=== PATIENT | male | born 1950 | race Caucasian/White ===

== ENCOUNTER 2016-07-05 16:20 | Emergency (ER) | payer MEDICARE ==
[2016-07-05 16:29] VITALS: RESP 20
[2016-07-05] MEDS ORDERED: HYDROcodone/APAP 5-325MG 1 EACH TAB PO STA (17:24)
--- NOTE | 2016-07-05 17:27 | ED ---
Upper Extremity HPI - General Chief Complaint: Extremity Injury, Upper Stated Complaint: Fall Time Seen by Provider: 07/05/16 17:15 Source: patient, RN notes reviewed Mode of arrival: ambulatory Limitations: no limitations - History of Present Illness Initial Comments: Patient is a 66-year-old male presents to the emergency room for evaluation of left arm pain. Patient states he was leaf blowing earlier this afternoon and slid down a hill landing on his left upper arm. Patient states she's having pain in his shoulder area. Patient states pain is worse when he tries to move his shoulder. Patient denies numbness or tingling in his fingers. Patient denies any other injuries during incident. Patient denies head trauma, neck pain, loss consciousness, nausea, vomiting. Patient denies taking any blood thinners. Patient states he's been taking ibuprofen with no relief of symptoms. Patient states he wants make sure he did not break his arm. Place: home, outdoors - Related Data Home Medications Medication Instructions Recorded Confirmed Fexofenadine/Pseudoephedrine 1 each PO BID 06/20/15 07/05/16 [Shameka-D 12 Hour Tablet] Ranitidine HCl [Zantac] 75 mg PO BID 06/20/15 07/05/16 Allergies Allergy/AdvReac Type Severity Reaction Status Date / Time No Known Allergies Allergy Verified 07/05/16 16:29 Review of Systems ROS Statement: Those systems with pertinent positive or pertinent negative responses have been documented in the HPI. ROS Other: All systems not noted in ROS Statement are negative. Past Medical History Past Medical History: Asthma Additional Past Medical History / Comment(s): chronic rash History of Any Multi-Drug Resistant Organisms: None Reported Past Surgical History: Orthopedic Surgery Additional Past Surgical History / Comment(s): right femur Past Psychological History: No Psychological Hx Reported Smoking Status: Never smoker Past Alcohol Use History: Occasional Past Drug Use History: None Reported General Exam - General Exam Comments Initial Comments: Sitting in exam room, no acute distress. Limitations: no limitations General appearance: alert, in no apparent distress Head exam: Present: atraumatic, normocephalic, normal inspection Eye exam: Present: normal appearance ENT exam: Present: normal exam Neck exam: Present: normal inspection Respiratory exam: Present: normal lung sounds bilaterally. Absent: respiratory distress Cardiovascular Exam: Present: regular rate, normal rhythm, normal heart sounds Left Shoulder Exam: Present: normal inspection. Absent: full ROM, tenderness, tenderness over AC joint Upper Arm exam: Present: tenderness (Tenderness on palpating over mid and proximal humerus). Absent: full ROM Elbow exam: Present: normal inspection, full ROM. Absent: tenderness Forearm Wrist exam: Present: normal inspection, full ROM. Absent: tenderness Hand Wrist exam: Present: normal inspection, full ROM. Absent: tenderness Neuro motor exam: Present: wrist extension intact, thumb opposition intact, thumb IP flexion intact, thumb adduction intact, fingers 2-5 abduction intact Vascular: Present: normal capillary refill (Capillary refill less than 2 seconds ), radial pulse (2+), ulnar pulse (2+) Back exam: Present: normal inspection Neurological exam: Present: alert, oriented X3, CN II-XII intact, normal gait Psychiatric exam: Present: normal affect, normal mood Skin exam: Present: warm, dry, intact, normal color. Absent: rash Course Vital Signs 07/05/16 16:26 Temperature 97.7 F Pulse Rate 73 Respiratory 20 Rate Blood Pressure 144/95 O2 Sat by Pulse 96 Oximetry Medical Decision Making - Medical Decision Making Patient is a 66-year-old male presents to the emergency room for evaluation of fall injury. Patient complaining of left upper arm pain. X-rays negative for any acute fractures or dislocations. Patient advised to follow-up with primary care provider if symptoms are not improving in 7-10 days. Advised patient take Tylenol or Motrin for pain. Patient states he understands everything that was discussed with him. Return parameters discussed. Case discussed with Dr. Gil. - Radiology Data Radiology results: report reviewed, image reviewed Disposition Clinical Impression: Fall, Contusion of left arm Disposition: HOME SELF-CARE Condition: Good Instructions: Contusion in Adults (ED) Additional Instructions: Ice on and off for 10-15 minutes for the next 24-48 hours. Please follow up with primary care provider if symptoms are not improving in 7-10 days. Take Tylenol or Motrin as needed for pain.. If new symptoms develop or symptoms worsen, please return to the ER. Referrals: Pam Hernandez MD [Primary Care Provider] - 1-2 days Time of Disposition: 17:59
--- NOTE | 2016-07-05 17:44 | XR ---
EXAMINATION TYPE: XR shoulder complete LT, XR humerus LT DATE OF EXAM: 07/05/2016 5:39 PM CLINICAL HISTORY: pain COMPARISON: NONE TECHNIQUE: Three views of the left shoulder are obtained. FINDINGS: There is no acute fracture/dislocation evident. The acromioclavicular and glenohumeral carol int spaces appear mildly to moderately narrowed. Cystic degenerative change humeral head.. The visua lized ribs are intact and unremarkable. IMPRESSION: 1. There is no acute fracture or dislocation. ICD 10 NO FRACTURE, INITIAL EVALUATION EXAMINATION TYPE: XR shoulder complete LT, XR humerus LT DATE OF EXAM: 07/05/2016 5:39 PM CLINICAL HISTORY: pain TECHNIQUE: Frontal and lateral images of the left humerus are obtained. COMPARISON: None. FINDINGS: There is no acute fracture/dislocation evident. The joint spaces appear within normal limi ts. The overlying soft tissue appears unremarkable. IMPRESSION: There is no acute fracture or dislocation. ICD 10 NO FRACTURE, INITIAL EVALUATION
[2016-07-05 18:15] VITALS: BP 136/80; PULSE 82; TEMP 97.5
== END 2016-07-05 18:15 | disposition home or self-care (01) ==
LOC: EC 16:20
DX: S40.022A Contusion of left upper arm, initial encounter (principal); Z79.899 Other long term (current) drug therapy; W01.0XXA Fall on same level from slipping, tripping and stumbling without subsequent striking against object, initial encounter; Y93.89 Activity, other specified; Y92.009 Unspecified place in unspecified non-institutional (private) residence as the place of occurrence of the external cause
CPT/HCPCS: 99283

== ENCOUNTER → 2019-03-29 | Outpatient (CLI) | payer OTHER ==
--- NOTE | 2019-03-29 11:39 | MR ---
EXAMINATION TYPE: MR sacroiliac joints wo/w con DATE OF EXAM: 03/29/2019 COMPARISON: NONE HISTORY: 69-year-old male M14.88 low back pain, spondyloarthropathy Technique: Multiplanar, multisequence images of the SI joints were obtained before and after administ ration of 12 mL intravenous Gadavist gadolinium contrast. FINDINGS: Heterogeneous marrow compatible with prominent red marrow reconversion which can be seen in the setti ng of anemia, obesity, smoking, and chronic disease. Degenerative changes within the visualized lower lumbar spine. Moderate degenerative disc disease L4- L5 and L5-S1 with disc height loss, disc desiccation, disc bulging. Corresponding endplate irregulari ty at L4-L5. Facet arthropathy lower lumbar spine. Along with ligamentum flavum thickening and disc bulge, there m ay be a moderate spinal canal stenosis L4-L5 with moderate bilateral foraminal stenoses. There is degenerative spurring within the bilateral SI joints, left greater than right no subarticula r edema or erosions are identified. The sacrum remains intact. No abnormal enhancement is identified. IMPRESSION: 1. 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 No subarticular edema or erosions to suggest an i nflammatory sacroiliitis. 2. Moderate degenerative disc disease and hypertrophic facet arthropathy visualized lower lumbar spin e. Along with ligamentum flavum thickening, there may be a moderate spinal canal stenosis at L4-L5 wi th moderate bilateral neuroforaminal stenosis.
== END | disposition home or self-care (01) ==
LOC: RADMRIMAIN 08:06
PROVIDERS: ATTEND Internal Medicine Rheumatology
DX: M16.0 Bilateral primary osteoarthritis of hip (principal); M47.898 Other spondylosis, sacral and sacrococcygeal region
CPT/HCPCS: 72197; A9585

== ENCOUNTER → 2019-04-29 | Outpatient (CLI) | payer MEDICARE ==
--- NOTE | 2019-04-29 12:11 | XR ---
EXAMINATION TYPE: XR chest 2V DATE OF EXAM: 04/29/2019 COMPARISON: 06/20/2015 HISTORY: 69-year-old male preoperative evaluation TECHNIQUE: Frontal and lateral views FINDINGS: Heart upper limits of normal in size. Aorta within normal limits. Mild interstitial prominence is unc hanged. No consolidation or pleural effusion. [facility] within the mid to lower thoracic spine. IMPRESSION: Chronic changes without acute cardiopulmonary process.
== END | disposition home or self-care (01) ==
LOC: RADXRMAIN 10:38
PROVIDERS: ATTEND Family Medicine
DX: Z01.818 Encounter for other preprocedural examination (principal)
CPT/HCPCS: 71046

== ENCOUNTER 2021-10-02 00:04 | Emergency (ER) | payer MEDICARE ==
[2021-10-02] MEDS ORDERED: IPRATROPIUM-ALBUTEROL 3 ML NEB INHALATION STA (00:24)
[2021-10-02] MEDS ORDERED: BENZONATATE 100 MG CAP PO STA (00:32)
[2021-10-02] MEDS ORDERED: DEXAMETHASONE SOD PHOSPHATE 10 MG/ML 1 ML VIAL IM STA (00:32)
--- NOTE | 2021-10-02 00:34 | ED ---
SOB HPI - General Chief Complaint: Shortness of Breath Stated Complaint: MARCIN Time Seen by Provider: 10/02/21 00:18 Source: patient, RN notes reviewed, old records reviewed Mode of arrival: ambulatory Limitations: no limitations - History of Present Illness Initial Comments: This is a 71-year-old male to the emergency department for evaluation. Patient presents today for evaluation regards to cough and shortness of breath and wheezing. Patient has history of asthma recently started on lisinopril as well as problems or with his breathing. Symptoms of been episodic. With worsening cough. Patient was at a wedding today and had a significant coughing attack prompting him to come the emergency department MD Complaint: shortness of breath, cough -: hour(s), days(s) Severity: mild Severity scale (1-10): 2 Quality: aching Consistency: intermittent Improves With: bronchodilators Worsens With: exertion Known History Of: COPD Context: recent URI, recent illness Associated Symptoms: cough Treatments Prior to Arrival: none - Related Data Home Medications Medication Instructions Recorded Confirmed Fexofenadine/Pseudoephedrine 1 each PO BID 06/20/15 07/05/16 [Shameka-D 12 Hour Tablet] raNITIdine HCL [Zantac] 75 mg PO BID 06/20/15 07/05/16 Previous Rx's Medication Instructions Recorded Benzonatate [Tessalon Perles] 100 mg PO TID PRN #15 capsule 10/02/21 predniSONE 50 mg PO DAILY #5 tab 10/02/21 Allergies Allergy/AdvReac Type Severity Reaction Status Date / Time No Known Allergies Allergy Verified 07/05/16 16:29 Review of Systems ROS Statement: Those systems with pertinent positive or pertinent negative responses have been documented in the HPI. ROS Other: All systems not noted in ROS Statement are negative. Past Medical History Past Medical History: Asthma, Hypertension Additional Past Medical History / Comment(s): chronic rash History of Any Multi-Drug Resistant Organisms: None Reported Past Surgical History: Orthopedic Surgery Additional Past Surgical History / Comment(s): right femur Past Psychological History: No Psychological Hx Reported Smoking Status: Never smoker Past Alcohol Use History: Occasional Past Drug Use History: None Reported General Exam Limitations: no limitations General appearance: alert, in no apparent distress Head exam: Present: atraumatic, normocephalic, normal inspection Eye exam: Present: normal appearance, PERRL, EOMI. Absent: scleral icterus, conjunctival injection, periorbital swelling ENT exam: Present: normal exam, mucous membranes moist Neck exam: Present: normal inspection. Absent: tenderness, meningismus, lymphadenopathy Respiratory exam: Present: normal lung sounds bilaterally, wheezes. Absent: respiratory distress, rales, rhonchi, stridor Cardiovascular Exam: Present: regular rate, normal rhythm, normal heart sounds. Absent: systolic murmur, diastolic murmur, rubs, gallop, clicks GI/Abdominal exam: Present: soft, normal bowel sounds. Absent: distended, tenderness, guarding, rebound, rigid Extremities exam: Present: normal inspection, full ROM, normal capillary refill. Absent: tenderness, pedal edema, joint swelling, calf tenderness Back exam: Present: normal inspection Neurological exam: Present: alert, oriented X3, CN II-XII intact Psychiatric exam: Present: normal affect, normal mood Skin exam: Present: warm, dry, intact, normal color. Absent: rash Course Vital Signs 10/02/21 10/02/21 10/02/21 00:12 01:05 01:12 Temperature 97.8 F Pulse Rate 80 80 82 Respiratory 20 Rate Blood Pressure 145/82 O2 Sat by Pulse 97 Oximetry - Reevaluation(s) Reevaluation #1: 10/02/21 02:24 Medical record is reviewed Reevaluation #2: 10/02/21 02:25 Patient informed results, feeling better questions are answered Reevaluation #3: 10/02/21 02:25 Patient continues to feel better and is okay for discharge Medical Decision Making - Medical Decision Making 71 male to the emergency department for evaluation positive cough and congestion. Secondary likely lisinopril which she has now stopped. Patient seeing his primary care this week for new blood pressure medication. He is feeling better here in the ER and can be discharged home - Radiology Data Radiology results: report reviewed (Chest x-rays negative for acute disease), image reviewed Disposition Clinical Impression: Acute bronchitis Disposition: HOME SELF-CARE Condition: Good Instructions (If sedation given, give patient instructions): Acute Bronchitis (ED) Prescriptions: predniSONE 50 mg PO DAILY #5 tab Benzonatate [Tessalon Perles] 100 mg PO TID PRN #15 capsule PRN Reason: Cough Is patient prescribed a controlled substance at d/c from ED?: No Referrals: Pam Hernandez MD [Primary Care Provider] - 1-2 days
--- NOTE | 2021-10-02 00:51 | XR ---
EXAM: XR Chest, 1 View CLINICAL HISTORY: ITS.REASON XR Reason: sob TECHNIQUE: Frontal view of the chest. COMPARISON: 06/20/2015. FINDINGS: Lungs: No consolidative changes. Pleural space: No pleural effusions. No pneumothorax. Heart: There is cardiomegaly. Mediastinum: Unremarkable. Bones/joints: Osseous structures are unremarkable. Soft tissues: Soft tissues are within normal limits. IMPRESSION: 1. Cardiomegaly. 2. No consolidative changes. 3. No pleural effusions.
[2021-10-02 02:26] VITALS: BP 141/92; PULSE 75; RESP 19; TEMP 98.4
== END 2021-10-02 02:25 | disposition home or self-care (01) ==
LOC: EC 00:04
DX: J20.9 Acute bronchitis, unspecified (principal); I10 Essential (primary) hypertension; J45.909 Unspecified asthma, uncomplicated; Z79.899 Other long term (current) drug therapy
CPT/HCPCS: 94640; 71045; 99284; 96372; J1100

== ENCOUNTER 2021-10-15 10:08 | Emergency (ER) | payer MEDICARE ==
[2021-10-15] MEDS ORDERED: IPRATROPIUM-ALBUTEROL 3 ML NEB INHALATION STA ×3 (11:05→14:27)
--- NOTE | 2021-10-15 11:10 | ED ---
SOB HPI - General Chief Complaint: Shortness of Breath Stated Complaint: MARCIN, Asthma Time Seen by Provider: 10/15/21 10:10 Source: patient, family, RN notes reviewed Mode of arrival: ambulatory Limitations: no limitations - History of Present Illness Initial Comments: 71-year-old male with a history of asthma also received diagnosed hypertension who states he was seen in emergency department couple weeks ago after starting on lisinopril and amitriptyline after which she developed shortness of breath. He was taken off of this by the also did get some improvement after steroids and an updraft treatment. After the medication was completed which included Tessalon Perles he started developing shortness of breath orthopnea and cough with thick white phlegm. He denies any overt fevers chills nausea vomiting sweats he did have some chest heaviness she related to the difficulty breathing. No known exposures to influenza or COVID-19. Patient also relates that he's had a rash on his back and somewhat itchy since taking medication. No other current complaints or modifying factors at this time MD Complaint: shortness of breath, cough - Related Data Home Medications Medication Instructions Recorded Confirmed Fexofenadine/Pseudoephedrine 1 each PO BID 06/20/15 07/05/16 [Shameka-D 12 Hour Tablet] raNITIdine HCL [Zantac] 75 mg PO BID 06/20/15 07/05/16 Previous Rx's Medication Instructions Recorded Benzonatate [Tessalon Perles] 100 mg PO TID PRN #15 capsule 10/02/21 predniSONE 50 mg PO DAILY #5 tab 10/02/21 Azithromycin [Zithromax Z Pack] 1 tab PO DIRECTED #6 tab 10/15/21 Ipratropium-Albuterol Nebulize 3 ml INHALATION Q6HR #90 ml 10/15/21 [Duoneb 0.5 mg-3 mg/3 ml Soln] Ipratropium/Albuter 20-100Mcg 1 puff INHALATION Q6HR PRN #4 gm 10/15/21 [Combivent Respimat 20-100Mcg Inhaler] predniSONE [Deltasone] 20 mg PO BID #10 tab 10/15/21 Allergies Allergy/AdvReac Type Severity Reaction Status Date / Time No Known Allergies Allergy Verified 10/15/21 10:21 Review of Systems ROS Statement: Those systems with pertinent positive or pertinent negative responses have been documented in the HPI. ROS Other: All systems not noted in ROS Statement are negative. Past Medical History Past Medical History: Asthma, Hypertension Additional Past Medical History / Comment(s): chronic rash History of Any Multi-Drug Resistant Organisms: None Reported Past Surgical History: Orthopedic Surgery Additional Past Surgical History / Comment(s): right femur Past Psychological History: No Psychological Hx Reported Smoking Status: Never smoker Past Alcohol Use History: Occasional Past Drug Use History: None Reported General Exam - General Exam Comments Initial Comments: This is a well-developed well-nourished awake alert oriented 4 male Limitations: no limitations General appearance: alert, in no apparent distress Head exam: Present: atraumatic, normocephalic, normal inspection Eye exam: Present: normal appearance, PERRL, EOMI. Absent: scleral icterus, conjunctival injection, periorbital swelling ENT exam: Present: normal exam, mucous membranes moist Neck exam: Present: normal inspection, full ROM, other. Absent: tenderness, meningismus, lymphadenopathy Respiratory exam: Present: wheezes, decreased breath sounds (No stridor JVD or bruits). Absent: respiratory distress, rales, rhonchi, stridor Cardiovascular Exam: Present: regular rate, normal rhythm, normal heart sounds. Absent: systolic murmur, diastolic murmur, rubs, gallop, clicks GI/Abdominal exam: Present: soft, normal bowel sounds. Absent: distended, tenderness, guarding, rebound, rigid Extremities exam: Present: normal inspection, full ROM, normal capillary refill. Absent: tenderness, pedal edema, joint swelling, calf tenderness Back exam: Present: normal inspection Neurological exam: Present: alert, oriented X3, CN II-XII intact Psychiatric exam: Present: normal affect, normal mood Skin exam: Present: warm, dry, intact, other (Several areas of erythema that appeared be more consistent with follicular reaction.). Absent: rash Course Vital Signs 10/15/21 10/15/21 10/15/21 10:14 11:00 12:10 Temperature 97.9 F Pulse Rate 78 70 70 Respiratory 20 18 Rate Blood Pressure 167/90 154/87 O2 Sat by Pulse 95 Oximetry 10/15/21 10/15/21 10/15/21 12:19 12:20 12:29 Temperature Pulse Rate 74 74 77 Respiratory Rate Blood Pressure O2 Sat by Pulse Oximetry 10/15/21 13:45 Temperature Pulse Rate 89 Respiratory 19 Rate Blood Pressure 136/83 O2 Sat by Pulse 94 L Oximetry - Reevaluation(s) Reevaluation #1: 10/15/21 13:45 Patient is much improved after the nebulizer treatment that he received CT pending Medical Decision Making - Medical Decision Making Patient was so much improved after the initial treatment he still has Sinemet breast sounds we did discuss options he will be going home today. Is on appropriate medications he is to follow-up with his doctor and return when necessary return parameters were discussed. The patient states he does have a nebulizer machine at home I will write for medication for this machine as well as Combivent inhaler and oral steroids. - Lab Data Result diagrams: 10/15/21 11:09 10/15/21 11:09 Lab Results 10/15/21 10/15/21 10/15/21 Range/Units 11:09 11:09 11:09 WBC 4.8 (3.8-10.6) k/uL RBC 4.74 (4.30-5.90) m/uL Hgb 14.9 (13.0-17.5) gm/dL Hct 45.1 (39.0-53.0) % MCV 95.1 (80.0-100.0) fL MCH 31.5 (25.0-35.0) pg MCHC 33.1 (31.0-37.0) g/dL RDW 13.4 (11.5-15.5) % Plt Count 191 (150-450) k/uL MPV 7.2 Neutrophils % 70 % Lymphocytes % 10 % Monocytes % 6 % Eosinophils % 11 % Basophils % 1 % Neutrophils # 3.4 (1.3-7.7) k/uL Lymphocytes # 0.5 L (1.0-4.8) k/uL Monocytes # 0.3 (0-1.0) k/uL Eosinophils # 0.6 (0-0.7) k/uL Basophils # 0.1 (0-0.2) k/uL PT 9.9 (9.0-12.0) sec INR 0.9 (<1.2) APTT 25.2 (22.0-30.0) sec D-Dimer 0.67 H (<0.60) mg/L FEU Sodium 139 (137-145) mmol/L Potassium 4.5 (3.5-5.1) mmol/L Chloride 109 H (98-107) mmol/L Carbon Dioxide 23 (22-30) mmol/L Anion Gap 7 mmol/L BUN 9 (9-20) mg/dL Creatinine 0.75 (0.66-1.25) mg/dL Est GFR (CKD-EPI)AfAm >90 (>60 ml/min/1.73 sqM) Est GFR (CKD-EPI)NonAf >90 (>60 ml/min/1.73 sqM) Glucose 102 H (74-99) mg/dL Plasma Lactic Acid Mat (0.7-2.0) mmol/L Calcium 9.3 (8.4-10.2) mg/dL Magnesium 1.9 (1.6-2.3) mg/dL Total Bilirubin 1.0 (0.2-1.3) mg/dL AST 33 (17-59) U/L ALT 26 (4-49) U/L Alkaline Phosphatase 88 (38-126) U/L Troponin I (0.000-0.034) ng/mL NT-Pro-B Natriuret Pep pg/mL Total Protein 7.2 (6.3-8.2) g/dL Albumin 4.6 (3.5-5.0) g/dL 10/15/21 10/15/21 10/15/21 Range/Units 11:09 11:09 11:09 WBC (3.8-10.6) k/uL RBC (4.30-5.90) m/uL Hgb (13.0-17.5) gm/dL Hct (39.0-53.0) % MCV (80.0-100.0) fL MCH (25.0-35.0) pg MCHC (31.0-37.0) g/dL RDW (11.5-15.5) % Plt Count (150-450) k/uL MPV Neutrophils % % Lymphocytes % % Monocytes % % Eosinophils % % Basophils % % Neutrophils # (1.3-7.7) k/uL Lymphocytes # (1.0-4.8) k/uL Monocytes # (0-1.0) k/uL Eosinophils # (0-0.7) k/uL Basophils # (0-0.2) k/uL PT (9.0-12.0) sec INR (<1.2) APTT (22.0-30.0) sec D-Dimer (<0.60) mg/L FEU Sodium (137-145) mmol/L Potassium (3.5-5.1) mmol/L Chloride (98-107) mmol/L Carbon Dioxide (22-30) mmol/L Anion Gap mmol/L BUN (9-20) mg/dL Creatinine (0.66-1.25) mg/dL Est GFR (CKD-EPI)AfAm (>60 ml/min/1.73 sqM) Est GFR (CKD-EPI)NonAf (>60 ml/min/1.73 sqM) Glucose (74-99) mg/dL Plasma Lactic Acid Mat 0.9 (0.7-2.0) mmol/L Calcium (8.4-10.2) mg/dL Magnesium (1.6-2.3) mg/dL Total Bilirubin (0.2-1.3) mg/dL AST (17-59) U/L ALT (4-49) U/L Alkaline Phosphatase (38-126) U/L Troponin I <0.012 (0.000-0.034) ng/mL NT-Pro-B Natriuret Pep 83 pg/mL Total Protein (6.3-8.2) g/dL Albumin (3.5-5.0) g/dL - EKG Data -: EKG Interpreted by Me EKG shows normal: sinus rhythm EKG Comments: Sinus rhythm of 72 KS interval 167 QRS duration 89 daily since QTC 391/4:[address] configuration - Radiology Data Radiology results: report reviewed (Imaging reviewed no evidence of PE please see the complete report), image reviewed Disposition Clinical Impression: Asthmatic bronchitis Disposition: HOME SELF-CARE Condition: Good Instructions (If sedation given, give patient instructions): Acute Bronchitis (ED), Asthma (ED) Prescriptions: Ipratropium/Albuter 20-100Mcg [Combivent Respimat 20-100Mcg Inhaler] 1 puff INHALATION Q6HR PRN #4 gm PRN Reason: Dyspnea predniSONE [Deltasone] 20 mg PO BID #10 tab Ipratropium-Albuterol Nebulize [Duoneb 0.5 mg-3 mg/3 ml Soln] 3 ml INHALATION Q6HR #90 ml Azithromycin [Zithromax Z Pack] 1 tab PO DIRECTED #6 tab Is patient prescribed a controlled substance at d/c from ED?: No Referrals: Pam Hernandez MD [Primary Care Provider] - 1-2 days Decision Date: 10/15/21 Decision Time: 14:39
[2021-10-15 11:21] LABS: Basophils # (A) 0.1 k/uL (0-0.2); Basophils % (A) 1 %; Eosinophils # (A) 0.6 k/uL (0-0.7); Eosinophils % (A) 11 %; HCT 45.1 % (39.0-53.0); HGB 14.9 gm/dL (13.0-17.5); Lymphocytes # (A) 0.5 k/uL (1.0-4.8); Lymphocytes % (A) 10 %; MCH 31.5 pg (25.0-35.0); MCHC 33.1 g/dL (31.0-37.0); MCV 95.1 fL (80.0-100.0); Mean Platelet Volume 7.2; Monocytes # (A) 0.3 k/uL (0-1.0); Monocytes % (A) 6 %; Neutrophils # (A) 3.4 k/uL (1.3-7.7); Neutrophils % (A) 70 %; Platelet Count 191 k/uL (150-450); RBC 4.74 m/uL (4.30-5.90); RDW 13.4 % (11.5-15.5); WBC 4.8 k/uL (3.8-10.6)
--- NOTE | 2021-10-15 11:27 | XR ---
EXAMINATION TYPE: XR chest 2V DATE OF EXAM: 10/15/2021 11:14 AM COMPARISON: Chest radiographs from 04/29/2019. TECHNIQUE: XR chest 2V Frontal and lateral views of the chest. CLINICAL INDICATION:Male, 71 years old with history of difficulty breathing; FINDINGS: Lungs/Pleura: There is no evidence of pleural effusion, focal consolidation, or pneumothorax. Mild in terstitial prominence redemonstrated. Pulmonary vascularity: Unremarkable. Heart/mediastinum: Cardiomediastinal silhouette is unremarkable. Atherosclerotic calcifications are seen in the aorta. Musculoskeletal: Multiple level degenerative disc disease changes seen throughout the spine. No acute osseous abnormality. IMPRESSION: No acute cardiopulmonary disease/process.
[2021-10-15 11:34] LABS: INR 0.9 (<1.2); Partial Thromboplastin Time 25.2 sec (22.0-30.0); Prothrombin Time 9.9 sec (9.0-12.0)
[2021-10-15 11:40] LABS: ALT 26 U/L (4-49); African American GFR (CKD) >90 (>60 ml/min/1.73 sqM); Albumin 4.6 g/dL (3.5-5.0); Anion Gap 7 mmol/L; Blood Urea Nitrogen 9 mg/dL (9-20); Calcium 9.3 mg/dL (8.4-10.2); Carbon Dioxide 23 mmol/L (22-30); Chloride 109 mmol/L (98-107); Glucose 102 mg/dL (74-99); Non-African American GFR(CKD) >90 (>60 ml/min/1.73 sqM); Sodium 139 mmol/L (137-145); Total Protein 7.2 g/dL (6.3-8.2)
[2021-10-15 11:46] LABS: AST 33 U/L (17-59); Alkaline Phosphatase 88 U/L (38-126); Magnesium 1.9 mg/dL (1.6-2.3); Potassium 4.5 mmol/L (3.5-5.1)
--- NOTE | 2021-10-15 14:20 | CT ---
EXAMINATION TYPE: CT angio chest CT DLP: 903.4 mGycm, Automated exposure control for dose reduction was used. DATE OF EXAM: 10/15/2021 2:00 PM COMPARISON: CT chest 10/15/2021, CT angiogram 06/20/2015. CLINICAL INDICATION:Male, 71 years old with history of PE suspected; Dyspnea TECHNIQUE/CONTRAST: CTA scan of the thorax is performed with IV Contrast, patient injected with 100 mL of Isovue 370, pul monary embolism protocol. MIP images are created and reviewed. FINDINGS: Motion artifact limits evaluation of the chest. Pulmonary Artery: There is no evidence for a filling defect within the pulmonary vasculature to sugge st acute pulmonary embolism. The pulmonary artery is of normal size. Lungs/Pleura: There are low lung volumes. No evidence of focal consolidation, pleural effusion or pne umothorax. Right middle lobe pulmonary nodule measuring 4 mm sagittal image 40 series 403, right uppe r lobe 3 mm nodule image 48, series 403 are unchanged from 2016. Mild intralobular septal thickening . Airway: Large airways are patent. Heart: Mildly enlarged for size. Vasculature: No evidence of aortic aneurysm. Mediastinum: No gross evidence of adenopathy. Musculoskeletal: Mild degenerative disc disease changes are present throughout the thoracolumbar spin e. Soft Tissues: Unremarkable. Lower neck: No significant findings. Upper Abdomen: Renal probable cortical cysts on the left. IMPRESSION: 1. No evidence of pulmonary embolism. 2. Cardiomegaly with mild pulmonary vascular congestion. Correlate with serum BNP 3. Right upper and middle lobe pulmonary nodule stable back to 2016. ,
[2021-10-15] MEDS ORDERED: methylPREDNISolone SOD SUCCI 125 MG/2 ML VIAL IV STA (14:27)
[2021-10-15] MEDS ORDERED: cefTRIAXone IN SWFI 1,000 MG/10 ML SYRINGE IVP STA (14:27)
[2021-10-15] MEDS ORDERED: AZITHROMYCIN 500 MG TAB PO STA (14:28)
[2021-10-15 15:01] VITALS: BP 140/86; PULSE 83; RESP 18; TEMP 98
== END 2021-10-15 15:01 | disposition home or self-care (01) ==
LOC: EC 10:08
DX: J45.909 Unspecified asthma, uncomplicated (principal); I10 Essential (primary) hypertension
CPT/HCPCS: 36415; 94640 ×2; 93005; 85379; 83880; 80053; 83605; 83735; 84484; 85025; 85610; 85730; 71046; 71275; 99285; 96374; 96375; J2930; J0696; Q9967

== ENCOUNTER → 2024-07-11 | Outpatient (CLI) | payer MEDICARE ==
--- NOTE | 2024-07-11 09:06 | XR ---
EXAMINATION TYPE: XR abdomen 1V DATE OF EXAM: 07/11/2024 COMPARISON: NONE HISTORY: Pain TECHNIQUE: Single supine KUB image of the abdomen is obtained FINDINGS: Small bowel demonstrates no evidence for dilatation or air fluid levels. Gas and fecal material is seen in non-distended colon. Moderate amount of stool is present within th e right colon. No convincing evidence for pneumoperitoneum. Left pelvic 4 mm calculus. Surgical clips in the pelvis. The lung bases are clear. The osseous structures are intact. Multilevel degenerative changes of the visualized thoracolumbar sp ine. Osteoarthritic changes of both hips with right greater than left. IMPRESSION: 1. Left pelvic 4 mm calculus which may represent a pelvic phlebolith versus distal ureteral calculus . 2. Nonobstructive bowel gas pattern. [facility], , 07/11/2024 9:03 AM
--- NOTE | 2024-07-11 09:07 | US ---
EXAMINATION TYPE: US abdomen complete DATE OF EXAM: 07/11/2024 COMPARISON: NONE CLINICAL INDICATION: Male, 74 years old with history of R10.84 GENERALIZED ABDOMINAL PAIN; Heartburn and RUQ pain x 5 days - better with medications; Hx HTN; ?Hx liver lesion TECHNIQUE: Grayscale and color Doppler imaging of the abdomen was performed. FINDINGS: EXAM MEASUREMENTS: Liver Length: 16. cm Gallbladder Wall: 0.2 cm CBD: 0.3 cm, color Doppler imaging was utilized to isolate the common bile duct for measurement. 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 Gallbladder: wnl Evidence for sonographic Mcclellan's sign: No CBD: wnl Spleen: wnl Right Kidney: wnl, No hydronephrosis, calculi or masses seen Left Kidney: wnl, No hydronephrosis, calculi or masses seen Upper IVC: wnl intrahepatically Abd Aorta: wnl The liver is homogenous. No distinct hepatic lesion identified. The intrahepatic portion of the IVC a nd proximal abdominal aorta are within normal limits. There is no evidence of cholelithiasis. Commo n bile duct is unremarkable. The visualized portions of the pancreas are homogenous. The spleen is unremarkable. Kidneys are symmetric and free of hydronephrosis. Renal sinus cyst identified in the l eft kidney. No solid renal mass visualized. IMPRESSION: No ultrasound evidence for acute abdominal process. [facility], , 07/11/2024 9:05 AM
== END | disposition home or self-care (01) ==
LOC: RADUSWWP 08:16
PROVIDERS: ATTEND Internal Medicine Geriatric Medicine
DX: N20.0 Calculus of kidney (principal); I10 Essential (primary) hypertension; R12 Heartburn
CPT/HCPCS: 74018; 76700

== ENCOUNTER → 2024-07-14 | Outpatient (CLI) | payer MEDICARE ==
--- NOTE | 2024-07-14 09:42 | NM ---
EXAMINATION TYPE: NM hepatobiliary w EF DATE OF EXAM: 07/14/2024 9:24 AM COMPARISON: Ultrasound most recent 07/11/2024 CT abdomen pelvis most recent from 10/15/2021 CLINICAL INDICATION:Male, 74 years old with history of R10.84 GENERALIZED ABDOMINAL PAIN; TECHNIQUE: The patient was given 5.1 mCi of Technetium 99m-Mebrofenin as a radiotracer and multiple scintigraphic images were obtained of the abdomen. Gallbladder function was also assessed after the a dministration of ensure drink and additional scintigraphic images were obtained of the abdomen. A reg ion of interest was drawn over the gallbladder and a timing activity curve was generated. The gallbla dder ejection fraction was calculated. FINDINGS: Normal uptake of radiotracer was identified within the liver with excretion into the hepatic and comm on biliary ducts within 4 min. There was normal progressive washout of the liver over the course of t he study. Radiotracer uptake within the gallbladder at 10 minutes as well as small bowel activity was identified at 52 minutes. Maximum calculated gallbladder ejection fraction is: 79% at 30 minutes (Normal gallbladder ejection fraction is > 35%) IMPRESSION: 1. Normal hepatobiliary scan. 2. Normal ejection fraction. [facility], , 07/14/2024 9:40 AM
== END | disposition home or self-care (01) ==
LOC: RADNMMAIN 06:55
PROVIDERS: ATTEND Family Medicine
DX: R10.84 Generalized abdominal pain (principal)
CPT/HCPCS: 78226; A9537